=== PATIENT | female | born 1960 | race Caucasian/White ===

== ENCOUNTER 2023-02-17 06:32 | Day surgery (SDC) | payer BC ==
[2023-02-10 10:56] LABS: BASOPHILS # (AUTO) 0.1 X10'3 (0-0.2); EOSINOPHILS # (AUTO) 0.4 X10'3 (0-0.9); EOSINOPHILS % (AUTO) 4.8 % (0-6); LYMPHOCYTES # (AUTO) 2.3 X10'3 (1.1-4.8); LYMPHOCYTES % (AUTO) 28.5 % (21-51); MEAN CORPUSCULAR HEMOGLOBIN 27.5 PG (27.0-31.0); MEAN CORPUSCULAR HGB CONC 33.3 g/dL (33.0-36.5); MEAN CORPUSCULAR VOLUME 82.5 FL (78-98); MEAN PLATELET VOLUME 9.3 FL (7.4-10.4); MONOCYTES # (AUTO) 0.5 X10'3 (0-0.9); NEUTROPHILS # (AUTO) 4.8 X10'3 (1.8-7.7); NEUTROPHILS % (AUTO) 59.7 % (42-75); PRE OP HEMATOCRIT 42.1 % (35.0-45.0); PRE OP PLATELET COUNT 185 X10'3 (140-440); PRE OP WHITE BLOOD COUNT 8.1 10'3 (4.8-10.8)
[2023-02-10 11:09] LABS: ALBUMIN 3.9 G/DL (3.4-5.0); ALBUMIN/GLOBULIN RATIO 1.1 (1.1-1.5); ALKALINE PHOSPHATASE 59 IU/L (46-116); BLOOD UREA NITROGEN 13 MG/DL (7-18); BUN/CREATININE RATIO 13.5 (10.0-20.0); CALCIUM 9.2 MG/DL (8.5-10.1); CHLORIDE 102 MMOL/L (99-107); CREATININE 0.96 MG/DL (0.40-0.90); PRE OP ALT 20 U/L (30-65); PRE OP ANION GAP 7 (8-16); PRE OP AST 20 U/L (10-37); PRE OP BILIRUB, TOTAL 1.2 MG/DL (0.0-1.0); PRE OP GLUCOSE 107 MG/DL (70-104); PRE OP POTASSIUM 3.8 MMOL/L (3.4-5.1); PRE OP SODIUM 137 MMOL/L (135-145); TOTAL CARBON DIOXIDE 27.9 MMOL/L (24-32); TOTAL PROTEIN 7.4 G/DL (6.4-8.2); eGFR 59 ML/MIN
[~2023-02-17] VITALS: Ht 172.7 cm; Wt 71.0 kg
[2023-02-17] VITALS (15 sets, daily range): BP systolic 121–151; BP diastolic 52–80; PULSE 53–87; RESP 11–20; TEMP 98.1; O2SAT 94–97
[~2023-02-17 06:32] MED LIST: LEFL10TA20 PO; LEVO88TA2 PO; cefazolin 2gm/D5W 100mL 100 ML IV ONE; famotidine 20mg tablet PO ONE; ringers solution, lacted 1,000 ML IV SCH
[2023-02-17] MEDS ORDERED: ondansetron/PF 4mg/2ml inj IV PRN (07:20)
[2023-02-17] MEDS ORDERED: morphine 4 MG/ML inj SYRINge IV PRN (07:20)
[2023-02-17] MEDS ORDERED: ringers solution, lacted 1,000 ML IV SCH (07:20)
[2023-02-17] MEDS ORDERED: labetalol 20mg/4ml (5mg/ml) syringe IV PRN (07:20)
[2023-02-17] MEDS ORDERED: morphine 2 MG/ML inj. syringe IV PRN (07:20)
[2023-02-17] MEDS ORDERED: polyvinyl alcohol ophthalmic drops 15ml bottle ONE (09:27)
[2023-02-17] MEDS ORDERED: LIDOCAINE 1%/EPI 1:100,000 inj. 10 ML multi-dose vial ONE ×2 (09:27)
[2023-02-17] MEDS ORDERED: mineral oil/petrolatum ophthal oint ONE (09:28)
[2023-02-17] MEDS ORDERED: TETRACAINE 0.5% 4 ML OPHTHALMIC DROPS ONE (09:28)
[2023-02-17] MEDS ORDERED: fentaNYL/PF 50MCG/1 ML 2ML syringe ONE (09:39)
[2023-02-17] MEDS ORDERED: midazolam 1 mg/ML 2ml injection ONE (09:39)
[2023-02-17] MEDS ORDERED: propofol inj 20 ML IV ONE (09:40)
[2023-02-17] MEDS ORDERED: LIDOcaine 2% (20mg/ml) 5ml vial ONE (09:41)
[2023-02-17] MEDS ORDERED: LIDOCAINE 1%/EPI 1:100,000 inj. 10 ML multi-dose vial IJ ONE (10:08)
[2023-02-17] MEDS ORDERED: TETRACAINE 0.5% 4 ML OPHTHALMIC DROPS EACHEYE ONE (10:10)
[2023-02-17] MEDS ORDERED: acetaminophen 1,000mg/100ml IV 100 ML IV PRN (10:55)
[2023-02-17] MEDS: proCHLORperazine 10 MG/2 ml inj IV PRN ×2 (11:52→12:14)
== END 2023-02-17 12:45 | disposition home or self-care (01) ==
LOC: PAS 06:32
PROVIDERS: ATTEND Specialist
DX: H02.831 Dermatochalasis of right upper eyelid (principal); H02.834 Dermatochalasis of left upper eyelid; E03.9 Hypothyroidism, unspecified; M06.1 Adult-onset Still's disease; K21.9 Gastro-esophageal reflux disease without esophagitis; Z90.49 Acquired absence of other specified parts of digestive tract; Z79.899 Other long term (current) drug therapy; Z98.890 Other specified postprocedural states; Z72.89 Other problems related to lifestyle
CPT/HCPCS: 15823; 36415; 80053; 82948; 85025; 93005; A6402; J0131; J0690; J0780; J2250; J2405; J2704; J3010; J3490; J7030; J7120; Z7506; Z7512; A4215; A4618; A6410; A6449; A7000